=== PATIENT | female | born 1980 | race Hispanic/Latino ===

== ENCOUNTER 2017-12-15 21:04 | Emergency (ER) | payer OTHER ==
[2017-12-15 21:14] VITALS: BMI 53.6
[2017-12-15] MEDS ORDERED: Simethicone 80 mg Chewtab PO PRN (21:23)
[2017-12-15] MEDS ORDERED: Morphine 4 mg/ml ISec IVP STA (21:26)
[2017-12-15] MEDS ORDERED: Iohexol 240 (50 ml) ONE (21:26)
--- NOTE | 2017-12-15 21:33 | ED PDOC ---
Arrival/HPI - General Chief Complaint: Abdominal Pain Time Seen by Provider: 12/15/17 21:11 Historian: Patient - History of Present Illness Narrative History of Present Illness (Text): 12/15/17 21:31 A 37 year old female, whose past medical history includes poly ovarian cystic disease, presents to the emergency department complaining of LLQ abdominal pain that developed about five hours ago. Reports he feels like he has gas. Patient denies any associated symptoms. Patient smokes cigarettes, denies drinking alcohol. Patient denies any nausea, vomiting, fever or any other complaints at this time. Time/Duration: 4-6 hours Symptom Onset: Sudden Symptom Course: Unchanged Quality: Gas Like Activities at Onset: Rest Context: Home Associated Symptoms (Text): none Past Medical History - Provider Review Nursing Documentation Reviewed: Yes - Infectious Disease Hx of Infectious Diseases: None - Genitourinary/Gynecological Other/Comment: PCOS - Psychiatric Hx Substance Use: No - Anesthesia Hx Anesthesia: No Family/Social History - Physician Review Nursing Documentation Reviewed: Yes Family/Social History: No Known Family HX Smoking Status: Heavy Smoker > 10 Cigarettes Daily Hx Alcohol Use: No Hx Substance Use: No Allergies/Home Meds Allergies/Adverse Reactions: Allergies No Known Allergies Allergy (Verified 12/15/17 21:14) Review of Systems - Physician Review All systems were reviewed & negative as marked: Yes - Review of Systems Constitutional: absent: Fevers Gastrointestinal: Abdominal Pain (LLQ). absent: Nausea, Vomiting Physical Exam Vital Signs Reviewed: Yes Vital Signs Temp Pulse Resp BP Pulse Ox 12/16/17 04:29 97 H 18 133/60 97 12/16/17 02:50 89 18 143/84 96 12/16/17 01:30 83 18 140/90 96 12/16/17 00:30 93 H 18 133/60 95 12/15/17 23:39 98.5 F 95 H 18 140/84 96 Appearance: Positive for: Comfortable, Other (morbidly obese) Pain Distress: None Mental Status: Positive for: Alert and Oriented X 3 - Systems Exam Head: Present: Atraumatic, Normocephalic Pupils: Present: PERRL Extroacular Muscles: Present: EOMI Conjunctiva: Present: Normal Mouth: Present: Moist Mucous Membranes Neck: Present: Normal Range of Motion Respiratory/Chest: Present: Clear to Auscultation, Good Air Exchange. No: Respiratory Distress, Accessory Muscle Use Cardiovascular: Present: Regular Rate and Rhythm, Normal S1, S2. No: Murmurs Abdomen: Present: Tenderness (LLQ), Normal Bowel Sounds. No: Distention, Peritoneal Signs, Rebound Back: Present: Normal Inspection Upper Extremity: Present: Normal Inspection. No: Cyanosis, Edema Lower Extremity: Present: Normal Inspection. No: Edema Neurological: Present: GCS=15, CN II-XII Intact, Speech Normal Skin: Present: Warm, Dry, Normal Color. No: Rashes Psychiatric: Present: Alert, Oriented x 3, Normal Insight, Normal Concentration Medical Decision Making ED Course and Treatment: 12/15/17 21:29 Impression: A 37 year old female with LLQ abdominal pain. Denies any associated symptoms. Plan: -- CT abdomen/pelvis -- labs -- Urinalysis -- Morphine, Mylicon, Toradol, Zofran -- Reassess and disposition Progress Notes: 12/16/17 03:36 CT abdomen and pelvis with intravenous contrast FINDINGS: Abdomen pelvis: Subcentimeter noncalcified pulmonary nodule in the left lower lobe, image 10. Hepatic steatosis. Unremarkable gallbladder, pancreas, spleen, adrenals and right kidney. There is mild left hydronephrosis secondary to a 3 mm obstructing calculus in the proximal ureter, image 55. Mild left perinephric stranding. Normal caliber aorta and appendix. No bowel obstruction. Unremarkable uterus. Scattered ovarian follicles. No free fluid or free air IMPRESSION: Left- sided obstructive uropathy. Subcentimeter noncalcified pulmonary nodule in the left lower lobe for which comparison with prior imaging is recommended to assure temporal stability. Hepatic steatosis. Dictated and Authenticated by: Paula Phillips MD 12/16/2017 3:29 AM Eastern Time ([place] & [place]) 12/16/17 03:48 On re-evaluation, patient is in no acute distress. I have discussed the results and plan with the patient, who expresses understanding. Patient in agreement with plan to be discharged home. Patient is stable for discharge. Patient was instructed to follow up with physician or return if symptoms worsen or new concerning symptoms arise. - Lab Interpretations Microbiology Results: Microbiology Results 12/16/17 01:16 Urine,Clean Catch Urine Culture - Final Beta Hemolytic Strep Group B Lab Results: 12/16/17 00:50 12/16/17 00:50 Lab Results 12/16/17 01:16: Urine Color Yellow, Urine Appearance Sl cloudy, Urine pH 6.0, Ur Specific [place] >= 1.030, Urine Protein 30 H, Urine Glucose (UA) 100 H, Urine Ketones 15 H, Urine Blood Large H, Urine Nitrate Negative, Urine Bilirubin Negative, Urine Urobilinogen 0.2, Ur Leukocyte Esterase Trace H, Urine RBC 15 - 20, Urine WBC 5 - 10, Ur Epithelial Cells 4 - 5, Urine Bacteria Mod 12/16/17 00:50: Sodium 138, Potassium 4.3, Chloride 102, Carbon Dioxide 28, Anion Gap 12, BUN 14, Creatinine 0.9, Est GFR ( Amer) > 60, Est GFR (Non- Af Amer) > 60, Random Glucose 221 H, Calcium 9.7, Total Bilirubin 0.4, AST 31, ALT 36, Alkaline Phosphatase 88, Total Protein 7.9, Albumin 3.8, Globulin 4.1, Albumin/Globulin Ratio 0.9 L, Lipase 93 12/16/17 00:50: PT 12.4, INR 1.09 H 12/16/17 00:50: WBC 19.3 H, RBC 4.69, Hgb 13.5, Hct 40.3, MCV 85.9, MCH 28.8, MCHC 33.5, RDW 13.7, Plt Count 312, MPV 10.8, Gran % 79.4 H, Lymph % (Auto) 15.5 L, [place] % (Auto) 4.4, Eos % (Auto) 0.3 L, Baso % (Auto) 0.4, Gran # 15.30 H , Lymph # (Auto) 3.0, [place] # (Auto) 0.9 H, Eos # (Auto) 0.1, Baso # (Auto) 0.08 I have reviewed the lab results: Yes - RAD Interpretation Radiology Orders: 12/15/17 21:23 ABD PELVIS PO & IV CONTRAST [CT] Stat - Medication Orders Current Medication Orders: Discontinued Medications Ceftriaxone Sodium (Rocephin 2 Gm Ivpb) 2 gm in 100 mls @ 100 mls/hr IVPB STAT STA PRN Reason: Protocol Stop: 12/16/17 04:35 Last Admin: 12/16/17 03:45 Dose: 100 mls/hr eMAR Start Stop Document 12/16/17 03:45 RG (Rec: 12/16/17 04:[id number]) Intravenous Solution Start Date 12/16/17 Start Time 03:45 End Date 12/16/17 End time 04:15 Total Infusion Time 30 Ketorolac Tromethamine (Toradol) 15 mg IVP STAT STA Stop: 12/15/17 21:27 Last Admin: 12/15/17 23:03 Dose: 15 mg MAR Pain Assessment Document 12/15/17 23:03 RG (Rec: 12/15/17 23:[id number]) Pain Reassessment Is this a pain reassessment? Yes Location Pain Location Body Site Abdomen Description Description Pressure IVP Administration Document 12/15/17 23:03 RG (Rec: 12/15/17 23:[id number]) Charges for Administration # of IVP Administrations 1 Re-Assess: MAR Pain Assessment Document 12/16/17 00:03 RG (Rec: 12/16/17 03:[id number][address] Pain Reassessment Is this a pain reassessment? Yes Sleep Is patient sleeping during reassessment? No Presence of Pain Presence of Pain No Morphine Sulfate (Morphine) 4 mg IVP STAT STA Stop: 12/15/17 21:27 Last Admin: 12/15/17 22:47 Dose: 4 mg MAR Pain Assessment Document 12/15/17 22:47 RG (Rec: 12/15/17 23:01 [id number]) Pain Reassessment Is this a pain reassessment? Yes Presence of Pain Presence of Pain Yes Pain Scale Used Pain Scale Used Numeric IVP Administration Document 12/15/17 22:47 RG (Rec: 12/15/17 23:[id number]) Charges for Administration # of IVP Administrations 1 Re-Assess: [facility] Pain Assessment Document 12/15/17 23:47 RG (Rec: 12/16/17 03:[id number]) Pain Reassessment Is this a pain reassessment? Yes Sleep Is patient sleeping during reassessment? No Presence of Pain Presence of Pain No Morphine Sulfate (Morphine) 4 mg IVP STAT STA Stop: 12/16/17 02:22 Last Admin: 12/16/17 02:35 Dose: 4 mg MAR Pain Assessment Document 12/16/17 02:35 RG (Rec: 12/16/17 02:35 RG [id number]) Pain Reassessment Is this a pain reassessment? Yes Presence of Pain Presence of Pain Yes Location Left, Right or Bilateral Left Pain Location Body Site Abdomen Description Description Constant Pain Behavior Moaning Aggravating Factors Contant Alleviating Factors/Management Medication Techniques IVP Administration Document 12/16/17 02:35 RG (Rec: 12/16/17 02:35 RG [id number]) Charges for Administration # of IVP Administrations 1 Re-Assess: [facility] Pain Assessment Document 12/16/17 03:35 RG (Rec: 12/16/17 03:41 RG [id number]) Pain Reassessment Is this a pain reassessment? Yes Sleep Is patient sleeping during reassessment? No Presence of Pain Presence of Pain No Ondansetron HCl (Zofran Inj) 4 mg IVP STAT STA Stop: 12/15/17 21:27 Last Admin: 12/15/17 23:04 Dose: 4 mg IVP Administration Document 12/15/17 23:04 RG (Rec: 12/15/17 23:04 RG [id number]) Charges for Administration # of IVP Administrations 1 Ondansetron HCl (Zofran Inj) 4 mg IVP STAT STA Stop: 12/16/17 02:22 Last Admin: 12/16/17 02:35 Dose: 4 mg IVP Administration Document 12/16/17 02:35 RG (Rec: 12/16/17 02:35 [id number][facility] Charges for Administration # of IVP Administrations 1 Simethicone (Mylicon Chew Tab) 80 mg PO PCHS PRN PRN Reason: GI distress Last Admin: 12/15/17 23:02 Dose: 80 mg - PA / KEY PUNCH OPERATOR / Resident Statement MD/DO has reviewed & agrees with the documentation as recorded. - Scribe Statement The provider has reviewed the documentation as recorded by the Aminata Vincent Provider Scribe Attestation: All medical record entries made by the Scribe were at my direction and personally dictated by me. I have reviewed the chart and agree that the record accurately reflects my personal performance of the history, physical exam, medical decision making, and the department course for this patient. I have also personally directed, reviewed, and agree with the discharge instructions and disposition. Disposition/Present on Arrival - Present on Arrival Any Indicators Present on Arrival: No History of DVT/PE: No History of Uncontrolled Diabetes: No Urinary Catheter: No History of Decub. Ulcer: No History Surgical Site Infection Following: None - Disposition Have Diagnosis and Disposition been Completed?: Yes Diagnosis: Kidney stone on left side Disposition: HOME/ ROUTINE Disposition Time: 03:39 Patient Plan: Discharge Condition: GOOD Discharge Instructions (ExitCare): Urinary Tract Infections in Adults, Kidney Stones (DC) Additional Instructions: Myesha- You have a 3 mm kidney stone in your proximal left ureter. It will probably pass on it's own. You also have a urinary tract infection. You have to follow up with the urologist. [Dr. Darron Villalpando is prescriptionist]. Percocet is for bad pain, it will upset your stomach. Zofran ODT is for your upset stomach. Flomax is to help the stone pass. Keflex is the antibiotic for the infection. It is important you drink at leasrt 5 twenty ounce bottles of water daily while you are taking the medicines. Kyle Meeks/ Albino Buchanan Prescriptions: Cephalexin [cephalexin] 500 mg PO QID #40 cap Ondansetron ODT [Zofran ODT] 8 mg PO TID #30 odt oxyCODONE/Acetaminophen [Percocet 5/325 mg Tab] 1 ea PO QID #20 tab Tamsulosin HCl [Flomax] 0.4 mg PO DAILY #10 cap.er.24h Referrals: [facility] Patience Tian, [Non-Staff] - Follow up with primary Cosme Dawson MD [Staff Provider] - Follow up with primary Forms: [employer] (Serbian)
[2017-12-15 23:40] VITALS: RESP 18; TEMP 98.5
[2017-12-16 01:19] LABS: BASO # 0.08 K/mm3 (0.0-2.0); BASO % 0.4 % (0.0-3.0); EOS # 0.1 (0.0-0.7); EOS % 0.3 % (1.5-5.0); GRAN # 15.3 (1.4-6.5); GRAN % 79.4 % (50.0-68.0); HEMOGLOBIN 13.5 g/dL (12.0-16.0); LYMPH % 15.5 % (22.0-35.0); MEAN CELL VOLUME 85.9 fl (80.0-105.0); MEAN CORPUSCULAR HEMOGLOBIN 28.8 pg (25.0-35.0); MEAN CORPUSCULAR HGB CONC 33.5 g/dl (31.0-37.0); MEAN PLATELET VOLUME 10.8 fl (7.0-11.0); MONO # 0.9 (0.1-0.6); MONO % 4.4 % (1.0-6.0); RBC 4.69 10^6/uL (3.5-6.1); RED CELL DISTRIBUTION WIDTH 13.7 % (11.5-14.5); WHITE BLOOD COUNT 19.3 10^3/ul (4.5-11.0)
[2017-12-16 01:32] LABS: INR 1.09 (0.93-1.08); PROTHROMBIN TIME 12.4 SECONDS (9.4-12.5)
[2017-12-16 01:41] LABS: ALB/GLOB RATIO 0.9 (1.1-1.8); ALBUMIN 3.8 g/dL (3.0-4.8); ALT/SGPT 36 U/L (7-56); AST/SGOT 31 U/L (14-36); BLOOD UREA NITROGEN 14 mg/dL (7-21); CALCIUM 9.7 mg/dL (8.4-10.5); GFR AFRICAN-AMERICAN > 60; GFR NON-AFRICAN AMERICAN > 60; LIPASE 93 U/L (23-300)
[2017-12-16] MEDS ORDERED: Iohexol 350 MG/100 ML VIAL ONE (01:44)
[2017-12-16 01:53] LABS: URINE BILIRUBIN NEGATIVE (NEGATIVE); URINE BLOOD LARGE (NEGATIVE); URINE GLUCOSE (UA) 100 mg/dL (NEGATIVE); URINE LEUKOCYTE ESTERASE TRACE Leu/uL (NEGATIVE); URINE PROTEIN 30 mg/dL (<30 mg/dL); URINE UROBILINOGEN 0.2 E.U./dL (<1 E.U./dL)
[2017-12-16 01:56] LABS: URINE APPEARANCE SL CLOUDY (CLEAR); URINE COLOR YELLOW (YELLOW)
[2017-12-16 02:05] LABS: URINE BACTERIA MOD (NEG); URINE RBC 15 - 20 /hpf (0-2)
[2017-12-16] MEDS ORDERED: Morphine 4 mg/ml ISec IVP STA (02:21)
[2017-12-16] MEDS ORDERED: cefTRIAXone 2 GM IN NS 2 GM/100 ML BAG IVPB STA (03:36)
[2017-12-16 04:43] VITALS: BP 133/60; PULSE 97; O2SAT 97
--- NOTE | 2017-12-16 09:02 | CT ---
PROCEDURE: CT Abdomen and Pelvis with contrast HISTORY: LLQ Pain ? Diverticulitis COMPARISON: None. TECHNIQUE: Contrast dose: 100 cc of Omni 350 Radiation dose: Total exam DLP = 1184 mGy-cm. This CT exam was performed using one or more of the following dose reduction techniques: Automated exposure control, adjustment of the mA and/or kV according to patient size, and/or use of iterative reconstruction technique. FINDINGS: LOWER THORAX: Unremarkable. LIVER: Fatty infiltration of the liver GALLBLADDER AND BILE DUCTS: Unremarkable. PANCREAS: Unremarkable. No gross lesion or ductal dilatation. SPLEEN: Unremarkable. ADRENALS: Unremarkable. No mass. KIDNEYS AND URETERS: There is a 3 mm stone in the left proximal ureter. There is mild left-sided hydronephrosis and minimal perinephric stranding VASCULATURE: Unremarkable. No aortic aneurysm. BOWEL: Unremarkable. No obstruction. No gross mural thickening. APPENDIX: Normal appendix. PERITONEUM: Unremarkable. No free fluid. No free air. LYMPH NODES: Unremarkable. No enlarged lymph nodes. BLADDER: Unremarkable. REPRODUCTIVE: Unremarkable. BONES: No acute fracture. OTHER FINDINGS: The report concurs with the preliminary [facility] report IMPRESSION: There is a 3 mm stone in the left proximal ureter. There is mild left-sided hydronephrosis and minimal perinephric stranding
== END 2017-12-16 04:30 | disposition home or self-care (01) ==
LOC: ED 21:04
DX: N20.0 Calculus of kidney (principal); F17.210 Nicotine dependence, cigarettes, uncomplicated
CPT/HCPCS: 74177; 80053; 81001; 83690; 85025; 85610; 87086; 96365; 96375; 96376; 99285; J0696; J1885; J2270; J2405; Q9966; Q9967